=== PATIENT | female | born 2000 | race American Indian/Alaskan Native ===

== ENCOUNTER 2021-10-21 16:39 | Outpatient (CLI) | payer MEDICAID ==
[2021-10-21 17:21] VITALS: BP 107/57
[2021-10-21] MEDS ORDERED: TERBUTALINE 1 MG/1 ML INJ IVP ONE (20:47)
[2021-10-21] MEDS ORDERED: LACTATED RINGERS 1,000 ML IV SCH (21:00)
--- NOTE | 2021-10-21 21:10 | Ultrasound Report ---
US OB >= 14 weeks Fetus, US OB limited INDICATION / CLINICAL INFORMATION: [place] abdomen in [place];. Clinical Gestational Age (GA) in weeks, days: 25 weeks 4 days TECHNIQUE: Transabdominal. COMPARISON: None available. FINDINGS: Single live intrauterine . measurements correspond to a gestational age of 2 6 weeks and 4 days by ultrasound. Estimated weight of 893 g. Evaluation is not tailored to eval uate detailed anatomy. No gross anatomic abnormality is identified. HEART RATE (beats per minute): 145 AMNIOTIC FLUID INDEX (cm) = 15.4 (normal = 7-24 cm) PRESENTATION: Breech. ADDITIONAL FINDINGS: Anterior placenta is free of the os. No placental lifting or separation. No retr oplacental hematoma. IMPRESSION: 1. Single live intrauterine with ultrasound age of 26 weeks and 4 days. No significant abno rmality. 2. No evidence of placental abruption. Signer Name: Ted Fabian MD Signed: 10/21/2021 9:05 PM Workstation Name: [id number]
[2021-10-21] MEDS ORDERED: TERBUTALINE 1 MG/1 ML INJ SUB-Q ONE (21:18)
--- NOTE | 2021-10-21 21:49 | Ultrasound Report ---
US OB limited INDICATION / CLINICAL INFORMATION: contractions COMPARISON: 10/21/2021 FINDINGS/IMPRESSION: Limited images of the cervix. The cervical length measures 3.4 cm. The cervical os appears closed. No fluid in the cervical canal. Signer Name: Ted Fabian MD Signed: 10/21/2021 9:45 PM Workstation Name: [id number]
== END 2021-10-21 22:15 | disposition left against medical advice (07) ==
LOC: TRG 16:39 → APU 16:41 → TRG 22:15
PROVIDERS: ATTEND Obstetrics & Gynecology
DX: O26.892 Other specified pregnancy related conditions, second trimester (principal); R10.9 Unspecified abdominal pain; Z3A.26 26 weeks gestation of pregnancy
CPT/HCPCS: 36415; 76805; 76815; 76817; 82731